=== PATIENT | female | born 1945 | race Asian ===

== ENCOUNTER 2020-12-06 14:00 | Emergency (ER) | payer MEDICARE, OTHER ==
[~2020-12-06 14:00] MED LIST: ALBUTEROL0.09 MG/A2 IH; VICODIN ES 7501 TAB PO
[2020-12-06 16:02] LABS: BILIRUBIN Negative (Negative); BLOOD Negative (Negative); CLARITY Clear (Clear); COLOR Yellow (Yellow); GLUCOSE Negative (Negative); KETONE Negative (Negative); LEUKO ESTERASE Trace (Negative); NITRITE Negative (Negative); PH 6.5 (4.5-8.0); UROBILINOGEN 0.2 E.U./dl (0.0-1.0)
[2020-12-06 16:15] LABS: BACTERIA TRACE; RBC 0-2 rbc/hpf (0-2)
[2020-12-06] MEDS ORDERED: HYDROCODONE-AC1 EAC1 PO (18:20)
== END 2020-12-06 18:08 | disposition home or self-care (01) ==
LOC: ED 14:00
PROVIDERS: Physician Assistant
DX: S13.9XXA Sprain of joints and ligaments of unspecified parts of neck, initial encounter (principal); S80.01XA Contusion of right knee, initial encounter; S50.01XA Contusion of right elbow, initial encounter; S00.93XA Contusion of unspecified part of head, initial encounter; S40.022A Contusion of left upper arm, initial encounter; S20.219A Contusion of unspecified front wall of thorax, initial encounter; S30.1XXA Contusion of abdominal wall, initial encounter; M25.532 Pain in left wrist; Z88.0 Allergy status to penicillin; Z88.5 Allergy status to narcotic agent; Z79.899 Other long term (current) drug therapy; Y04.2XXA Assault by strike against or bumped into by another person, initial encounter; Y93.89 Activity, other specified; Y92.098 Other place in other non-institutional residence as the place of occurrence of the external cause; Y99.8 Other external cause status

== ENCOUNTER 2021-08-12 09:58 | Emergency (ER) | payer OTHER ==
[~2021-08-12] VITALS: Wt 49.9 kg
[~2021-08-12 09:58] MED LIST changes: +HYDROCODONE-AC1 EAC1 PO
[2021-08-12] MEDS ORDERED: PREDNISONE10 MG PO (14:42)
== END 2021-08-12 14:51 | disposition home or self-care (01) ==
LOC: ED 09:58
DX: T78.49XA Other allergy, initial encounter (principal); Z88.0 Allergy status to penicillin; Z88.8 Allergy status to other drugs, medicaments and biological substances; Y92.89 Other specified places as the place of occurrence of the external cause

== ENCOUNTER 2022-01-27 14:53 | Inpatient (IN) | payer OTHER ==
[~2022-01-27] VITALS: Ht 163 cm; Wt 66.0 kg
[~2022-01-27 14:53] MED LIST changes: +PREDNISONE10 MG PO
[2022-01-27 14:54] VITALS: BP 128/61
[2022-01-27 15:28] LABS: BASO % 0.4 % (0.0-1.0); EOS % 0.4 % (1.0-4.0); HEMATOCRIT 44.4 % (37.0-47.0); LYMPH # 1.4 10*3/uL (1.3-4.4); LYMPH % 18.4 % (27.0-41.0); MEAN CELL VOLUME 101.1 fl (81.0-99.0); MEAN CORPUSCULAR HGB 31.7 pg (27.0-31.0); MEAN CORPUSCULAR HGB CONC 31.3 g/dl (33.0-37.0); MEAN PLATELET VOLUME 9.9 fl (9.6-12.3); MONO # 0.3 10*3/uL (0.1-1.0); MONO % 4.3 % (3.0-9.0); NEUT # 5.8 10*3/uL (2.3-7.9); NEUT % 75.8 % (47.0-73.0); PLATELET COUNT AUTOMATED 201 10*3/uL (130-400); RED BLOOD COUNT 4.39 10*6/uL (4.10-5.10); RED CELL DISTRI WIDTH 13.1 % (0-14.5); WHITE BLOOD COUNT 7.6 10*3/uL (4.8-10.8)
[2022-01-27 15:43] LABS: ALKALINE PHOSPHATASE 41 U/L (45-117); BUN 19 mg/dl (7-24); CHLORIDE 110 mmol/L (98-107); CREATININE 0.75 mg/dL (0.55-1.02); LIPASE 164 U/L (73-393); POTASSIUM 3.3 mmol/L (3.5-5.1); SGOT/AST 19 IU/L (3-35); SGPT/ALT 29 U/L (12-78); SODIUM 139 mmol/L (136-145); TOTAL PROTEIN 7.4 gm/dL (6.4-8.2)
[2022-01-27 16:25] LABS: BILIRUBIN Negative (Negative); BLOOD Negative (Negative); CLARITY Clear (Clear); COLOR Yellow (Yellow); GLUCOSE Negative (Negative); KETONE 1+ (Negative); LEUKO ESTERASE Negative (Negative); NITRITE Negative (Negative); PH 7.5 (4.5-8.0); UROBILINOGEN 0.2 E.U./dl (0.0-1.0)
[2022-01-27 16:35] LABS: BACTERIA 1+; EPITHELIAL CELLS 0-2; WBC 0-2 wbc/hpf (0-5)
[2022-01-27 18:00] LABS: ACT PARTIAL THROMBO TIME 25.8 SECONDS (20.0-32.1)
[2022-01-27 19:34] VITALS: BP 105/61
[2022-01-27 19:45] VITALS: BP 124/61
[2022-01-28] VITALS: BP 100/54
[2022-01-28 05:34] LABS: ALKALINE PHOSPHATASE 35 U/L (45-117); BUN 15 mg/dl (7-24); CHLORIDE 114 mmol/L (98-107); POTASSIUM 4.1 mmol/L (3.5-5.1); SGOT/AST 13 IU/L (3-35); SGPT/ALT 24 U/L (12-78); SODIUM 143 mmol/L (136-145); TOTAL PROTEIN 6.6 gm/dL (6.4-8.2)
[2022-01-28 05:35] LABS: FREE T4 0.97 ng/dl (0.76-1.46)
[2022-01-28 05:40] LABS: THYROID STIM HORMONE (HS) 0.925 uIU/ml (0.358-4.75)
[2022-01-28 06:34] LABS: BASO % 0.5 % (0.0-1.0); EOS % 0.7 % (1.0-4.0); HEMATOCRIT 38.4 % (37.0-47.0); LYMPH # 1.5 10*3/uL (1.3-4.4); LYMPH % 25.3 % (27.0-41.0); MEAN CORPUSCULAR HGB 31.4 pg (27.0-31.0); MEAN CORPUSCULAR HGB CONC 32.6 g/dl (33.0-37.0); MEAN PLATELET VOLUME 10.3 fl (9.6-12.3); MONO # 0.5 10*3/uL (0.1-1.0); MONO % 7.7 % (3.0-9.0); NEUT # 3.9 10*3/uL (2.3-7.9); NEUT % 65.5 % (47.0-73.0); PLATELET COUNT AUTOMATED 247 10*3/uL (130-400); RED BLOOD COUNT 3.98 10*6/uL (4.10-5.10); RED CELL DISTRI WIDTH 13.1 % (0-14.5); WHITE BLOOD COUNT 5.9 10*3/uL (4.8-10.8)
[2022-01-28 06:35] LABS: MEAN CELL VOLUME 96.5 fl (81.0-99.0)
[2022-01-28 08:00] VITALS: BP 105/66
[2022-01-28 10:26] LABS: VITAMIN D, 25-HYDROXY 94.5 ng/mL (30-100)
[2022-01-28 12:00] VITALS: BP 108/62
[2022-01-28 16:00] VITALS: BP 102/53
[2022-01-28 16:26] VITALS: BP 112/66
== END 2022-01-28 17:03 | disposition left against medical advice (07) | DRG 74 ==
LOC: ED 14:53 → EDHOLD 17:24 → 4E 17:24 → EDHOLD 17:56 → 4E 17:59
PROVIDERS: Emergency Medicine; Family Medicine; ADMIT Internal Medicine; ATTEND Internal Medicine
DX: G90.9 Disorder of the autonomic nervous system, unspecified (principal); E44.1 Mild protein-calorie malnutrition; E83.41 Hypermagnesemia; E87.6 Hypokalemia; J45.909 Unspecified asthma, uncomplicated; E87.8 Other disorders of electrolyte and fluid balance, not elsewhere classified; Z53.29 Procedure and treatment not carried out because of patient's decision for other reasons; R73.9 Hyperglycemia, unspecified; D75.89 Other specified diseases of blood and blood-forming organs; Z88.6 Allergy status to analgesic agent; Z88.0 Allergy status to penicillin; Z68.24 Body mass index [BMI] 24.0-24.9, adult